=== PATIENT | female | born 1975 | race Caucasian/White ===

== ENCOUNTER 2025-07-24 11:13 | Outpatient (OUT) | payer OTHER, SELFPAY ==
--- OUTSIDE RECORDS SUMMARY | 2025-07-22 07:52 | XMS_ITS | Continuity of Care Document ---
Author Organization [facility] Address [address] [place] [address] Phone Care Team Providers Care Agriculture Laborer Name Role Phone Valarie Leung MD Primary Care Provider Valarie Leung MD Attending Provider [phone] Care Teams Patient Care Team Team Status: Active Member Role Status Dates Valarie Leung MD Primary Care Provider Active Patient Care Team Team Status: Inactive Member Role Status Dates Valarie Leung MD Primary Care Provider Active Start: July 22, 2025 End: July 22, 2025 Valarie Leung MD Attending Provider Active St art: July 22, 2025 End: July 22, 2025 Chief Complaint and Reason for Visit Chief Complaint Admit Date wellness July 22, 2025 11:15am Reason for Visit Admit Date Colon cancer screening July 22 11:15am Lump of skin of back July 22 11:15am Screening mammogram for breast cancer Se ptember 2024 11:15am Reason for Referral Referring Provider Name Referring Provider Address Referring Provider Phone Referral Date Requested Appointment Date Referral Reason Valarie Leung [address] [facility] [address] Work Phone: July 22, 2025 R22.2 - Localized swelling, mass and lump, trunk June R22.2 - Localized swelling, mass and lump, trunk Allergies, Adverse Reactions, Alerts Allergen Type Severity Reaction Last Updated Verified Status No Known Allergies Allergy Unknown 2024 11:24am Yes Active Social History Smoking Status Status Start Date End Date Date of Observa tion Smokes tobacco daily (finding) November 06, 2024 12:07pm Observation Status Observation Response Date of Response Legal Sex Female (finding) Sex Assigned At Female 1975 Family History Relationship Condition Age at Onset Recorded Date/T chanell father Malignant neoplasm Unknown Heart disease Unknown Hypertension Unknown Problems Active Problems Medical Problem Onset Date Status Colon cancer screening Unknown Active Lump of skin of back Unknown Active Screening mammogram for breast cancer Unknown Active Low back pain Unknown Active Vaginal discharge Unknown Active Posterior right knee pain Unknown Active Tobacco abuse Unknown Active Bronchitis Unknown Active Medications Medication Status Dose Units Route Directions Qty Days St art Date Stop Date End Date Instructions Adherence Prednisone 20 mg tablet Discont inued 20 MG PO Twice daily 6 3 2024 1:00am February 18, 2025 8:33a m Ketorolac 10 mg tablet Discont inued MG PO February 07, 2024 12:00a m February 08, 2024 10:06 am FreeTextSi tablet with food or milk as needed Orally 3 times a day prn; Note: Source Status: Taking; Provider: Madhu Sheppard ( ) Cyclobenzap rine 10 mg tablet Discont inued MG PO February 07, 2024 12:00a m February 08, 2024 10:06 am FreeTextSi tab Orally 3 times a day prn; Note: Source Status: Taking; Provider: Madhu Sheppard ( ) Fluticasone Propionate 50 mcg/actuati on spray,suspe nsion Discont inued 1 SPRAY INTRAN HUSAM Daily February 07, 2024 12:00a m February 08, 2024 10:06 am FreeTextSi spray in each nostril Nasally Once a day; Note: Source Status: Taking; Provider: Lety freire 250 mg tablet Discont inued 0 PO .COMPLEX 6 February 08, 2024 12:00a m 2024 1:06p m For 250 mg dose pack: take 500 mg today (day 1), then 250 mg for 4 days (days 2-5) PO Albuterol Sulfate 90 mcg/actuati on HFA aerosol inhaler Discont inued 2 PUFF INHALA TION EVERY 4-6 HOURS as needed for bronchospas m 6.7 February 08, 2024 12:00a m Octua 2024 1:18p m Nicotine (Polacrilex ) 4 mg gum Discont inued 4 MG BUCCAL Every 2 hours as needed for nicotine cravings 50 February 18, 2025 12:00a m [facility] 2024 11:24 am Nicotine (Nicoderm Cq) 21 mg/24 hr patch 24 hour Active 1 PATCH TRANSD ERML Daily 28 2024 12:00a m Complies with drug therapy Escitalopra m Oxalate (Lexapro) 10 mg tablet Active 10 MG PO Daily 30 2024 12:00a m Complies with drug therapy Vital Signs Vital Reading Result Reference Range Collection Date/Time Height 62 [in_i] July 22, 2025 11:20am Weight 88.90 kg July 22, 2025 11:20am Heart Rate 87 /min 60-100 July 22, 2025 11:20am BP Systolic 127 mm[Hg] 100-140 July 22, 2025 11:20am BP Diastolic 82 mm[Hg] 60-100 July 22, 2025 11:20am BMI (Body Mass Index) 35.8 kg/m2 2024 11:20am Advance Directives Advance Directive Response Recorded Date/ Time Advance Directives No February 07 024 9:55am Insurance Providers Guarantor Nanci Wynn , P Address [address] [facility] [address] Contact Info. Home Phone: Payer Policy Id Subscriber's Name Subscriber Id Effectiv e Date Expiration Date [employer] [id number] Jerrod Wynn [id number] Encounters Encounter Location(s) Arrival/Admit Date Discharge/Depart Date Provider(s) Departed Physician/Prov ider Office Visit -[facility] July 22, 2025 11:15am July 22, 2025 11:51am Valarie Leung MD Recent Diagnosis Onset Date Admit Date Colon cancer screening Unknown July 22, 2025 11:15am Lump of skin of back Unknown July 012024 11:15am Screening mammogram for breast cancer Unknown July 22, 2025 11:15am Assessments Diagnosis Onset Date Resolution Status Admit Date Colon cancer screening acute Se ptember 2024 11:15am Lump of skin of back acute Sept ember 2024 11:15am Screening mammogram for breast cancer acute July 22, 2025 11:15am Plan of Treatment Future Tests Future scheduled test information is unavailable Pending Tests Test Name Ordered Date Scheduled Date MM screening mammo BI w/CAD July 22, 2025 11:38am Future Visits Future appointment information is unavailable Referrals to Other Providers Reason for Referral Referral Start Date Provider Provider Contact Information Provider Address R22.2 - Localized swelling, mass and lump, trunk July 22, 2025 [facility] Future Procedures Procedure Name Ordered Date Scheduled Date AMB Cologuard July 22, 2025 11:40am Future Medications Future medication information is unavailable Patient Instructions Patient instructions are unavailable Hospital Discharge Instructions Ambulatory Orders* Referral to General Surgery Time Frame: 07/22/25, Location: None Selected
--- OUTSIDE RECORDS SUMMARY | 2025-07-24 11:18 | XMS_ITS | Clinical Summary ---
Author Organization [facility] Address [address] [place] [address] Care Team Providers Care Carding Doubler Name Role Phone Unavailable Primary Care Provider Unavailabl e Social History Tobacco Use Types Packs/Day Years Used Date Smoking Tobacco: Never Assessed Comments Unknown Sex and Gender Information Value Date Recorded Sex Assigned at Not on file Legal Sex Female 11:47 PM EDT Gender Identity Not on file Sexual Orientation Not on file Last Filed Vital Signs Vital Sign Reading Time Taken Comments Blood Pressure - - Pulse - - Temperature - - Respiratory Rate - - Oxygen Saturation - - Inhaled Oxygen Concentration - - Weight 84.4 kg (186 lb) 01/24/2023 12:00 PM EDT Height 157.5 cm (5' 2 ) 01/24/2023 12:00 PM EDT Body Mass Index 34.02 01/24/2023 12:00 PM EDT Plan of Treatment Not on file
--- NOTE | 2025-07-24 11:19 | MM_ITS ---
Patient Name: DENISE ALVARES MR#: [id number] : 1975 Exam Date: 07/24/2025 Ordering Doctor: DR MAHESH LUEVANO M.D. RADIOLOGY REPORT PROCEDURE: MM TOMOSYNTHESIS SCREENING BI COMPARISON: MG MAMM SCREEN 3D MEG CAD, 02/22/2022. MG MAMM LT DIAG W CAD, 04/23/2018. MAMMO POST BIOPSY LEFT, 08/07/2017. MG MAMM MEG SCRN W CAD DIG, 09/18/2013. INDICATIONS: Screening Calculator Name NCI Breast Cancer Risk Assessment Tool 5 Year Breast Cancer Risk 1.40% Lifetime Breast Cancer Risk 11.20% Personal Breast Cancer No Personal Ovarian Cancer No Treatments None Family Cancers Aunt-maternal with breast cancer at age 50. LOCATION: [facility] BREAST COMPOSITION: There are scattered areas of fibroglandular density. FINDINGS: DIAGNOSTIC CATEGORY 1--NEGATIVE. RIGHT BREAST: No significant suspicious finding. LEFT BREAST: No significant suspicious finding. RECOMMENDATIONS: ROUTINE MAMMOGRAM AND CLINICAL EVALUATION IN 12 MONTHS. Dictated by: Jf Hunter DO on 07/24/2025 at 15:05 Approved by: Jf Hunter DO on 07/24/2025 at 15:07
--- NOTE | 2025-07-24 11:23 | US_ITS ---
[address] [address] Patient Name: DENISE ALVARES MRN: [id number] date: 1975 Sex: F Assigned Patient Location: MAMMO Current Patient Location: MAMMO Accession/Order Number: [id number] Exam Date: 07/24/2025 11:38 Report Date: 07/24/2025 12:32 At the request of: MAHESH LUEVANO MD Procedure: US abdomen limited Soft tissue ULTRASOUND: CLINICAL HISTORY: Localized Swelling Back COMPARISON: None TECHNIQUE: Grayscale and color Doppler images of the area concern was obtained FINDINGS: An area of concern involving the left back, a hyperechoic mass is noted measuring 2.4 x 1.1 x 0.7 cm suspicious for a lipoma. US/US abdomen limited IMPRESSION: LIPOMA INVOLVING THE AREA OF CONCERN INVOLVING THE LEFT BACK 2.4 X 1.1 X 0.7 CM.. Impression dictated by: Jf Hunter Jr., D.O. 07/24/2025 12:32 PM Dictation Location: [place] [address] Electronically authenticated by: [id number] Y Date: 07/24/2025 12:32
== END 2025-07-24 11:14 | disposition home or self-care (01) ==
LOC: MAMMO 11:15
PROVIDERS: PCP Family Medicine; Visit Provider Family Medicine
DX: Z12.31 Encounter for screening mammogram for malignant neoplasm of breast (principal); R22.2 Localized swelling, mass and lump, trunk; Z80.3 Family history of malignant neoplasm of breast; D17.39 Benign lipomatous neoplasm of skin and subcutaneous tissue of other sites
CPT/HCPCS: 76705; 77063; 77067